=== PATIENT | female | born 1955 | race Hispanic/Latino ===

== ENCOUNTER 2019-09-07 21:24 | Emergency (ER) | payer MEDICAID ==
[2019-09-07 21:33] VITALS: BP 145/57
--- NOTE | 2019-09-07 23:11 | XRay Report ---
LEFT HAND 3 VIEWS INDICATION / CLINICAL INFORMATION: Left middle finger swelling and pain after fall tonight. COMPARISON: None available. FINDINGS: BONES and JOINT(S): There is a mildly displaced oblique fracture through the middle phalanx of the mi ddle finger. No dislocation. No significant arthritis. SOFT TISSUES: Generalized edema is seen along the middle finger. No additional significant abnormalit y. ADDITIONAL FINDINGS: None. IMPRESSION: Acute left middle finger fracture as above. Signer Name: Patel Huerta MD Signed: 09/07/2019 11:06 PM Workstation Name: [id number]
--- NOTE | 2019-09-07 23:19 | Emergency Department Report ---
HPI - General Chief Complaint: Extremity Injury, Upper Time Seen by Provider: 09/07/19 23:05 - HPI HPI: Room 37 The patient is a 64-year-old female presenting with a chief complaint left middle finger pain. The patient states this evening at approximately 19:30 she tripped over a baby gait and her dog falling to the ground injuring her left middle finger. Patient denies loss of consciousness. Patient complains of pain only in the left middle finger and gives her pain score of 9.5/10 ED Past Medical Hx - Past Medical History Previous Medical History?: Yes Hx Hypertension: Yes Hx GERD: Yes Hx Arthritis: Yes Hx Asthma: Yes Additional medical history: Hypercholesterolemia - Surgical History Past Surgical History?: Yes Additional Surgical History: Tubal Ligation - Family History Family history: no significant - Social History Smoking Status: Current Every Day Smoker (2/3 pack per day) Substance Use Type: None - Medications Home Medications: Home Medications Medication Instructions Recorded Confirmed Last Taken Type HYDROcodone/APAP 5-325 [[place] 1 - 2 each PO Q6HR PRN #30 tablet 09/07/19 Unknown Rx 5/325] ED Review of Systems ROS: Stated complaint: LEFT FINGER PAIN Other details as noted in HPI Constitutional: no symptoms reported Eyes: denies: eye pain ENT: denies: throat pain Respiratory: no symptoms reported Cardiovascular: denies: chest pain Endocrine: no symptoms reported Genitourinary: denies: dysuria Musculoskeletal: arthralgia, myalgia Neurological: denies: headache Physical Exam - Physical Exam Vital Signs: Vital Signs 09/07/19 21:31 Temperature 97.5 F L Pulse Rate 63 Respiratory 16 Rate Blood Pressure 145/57 O2 Sat by Pulse 98 Oximetry Physical Exam: GENERAL: The patient is well-developed well-nourished female lying on stretcher not appearing to be in acute distress. [] HEENT: Normocephalic. Atraumatic. Extraocular motions are intact. Patient has moist mucous membranes. NECK: Supple. Trachea midline CHEST/LUNGS: There is no respiratory distress noted. HEART/CARDIOVASCULAR: Regular. There is no tachycardia. 2+ left radial pulse. Normal capillary refill of the left middle finger SKIN: There is swelling and ecchymosis of the left middle finger NEURO: The patient is awake, alert, and oriented. The patient is cooperative. The patient has no focal neurologic deficits. The patient has normal speech MUSCULOSKELETAL: There is swelling, tenderness and ecchymosis of the left middle finger ED Course Vital Signs 09/07/19 21:31 Temperature 97.5 F L Pulse Rate 63 Respiratory 16 Rate Blood Pressure 145/57 O2 Sat by Pulse 98 Oximetry ED Medical Decision Making - Radiology Data Radiology results: report reviewed (left middle finger x-ray), image reviewed (left middle finger x-ray) interpreted by me: Left middle finger [id number] fracture of the middle phalanx of the left middle finger [facility] [address] [place] [address] XRay Report Signed Patient: BRIANA GALVEZ MR#: [id number] 3 : 1955 Acct:[id number] Age/Sex: 64 / F ADM Date: 09/07/19 Loc: ED Attending Dr: Ordering Physician: MARCOS MYERS MD Date of Service: 09/07/19 Procedure(s): XR hand 3+V LT Accession Number(s): [id number] cc: MARCOS MYERS MD Fluoro Time In Minutes: LEFT HAND 3 VIEWS INDICATION / CLINICAL INFORMATION: Left middle finger swelling and pain after fall tonight. COMPARISON: None available. FINDINGS: BONES and JOINT(S): There is a mildly displaced oblique fracture through the middle phalanx of the middle finger. No dislocation. No significant arthritis. SOFT TISSUES: Generalized edema is seen along the middle finger. No additional significant abnormality. ADDITIONAL FINDINGS: None. IMPRESSION: Acute left middle finger fracture as above. Signer Name: Patel Huerta MD Signed: 09/07/2019 11:06 PM Workstation Name: [id number] Transcribed By: [place] Dictated By: Patel Huerta MD Electronically Authenticated By: Patel Huerta MD Signed Date/Time: 09/07/192305 DD/ 03 TD/TT: - Differential Diagnosis finger fracture, finger contusion Critical care attestation.: If time is entered above; I have spent that time in minutes in the direct care of this critically ill patient, excluding procedure time. ED Disposition Clinical Impression: Fracture of phalanx of left middle finger Disposition: DC-01 TO HOME OR SELFCARE Is pt being admited?: No Does the pt Need Aspirin: No Condition: Stable Instructions: Finger Fracture (ED) Prescriptions: HYDROcodone/APAP 5-325 [[place] 5/325] 1 - 2 each PO Q6HR PRN #30 tablet PRN Reason: Pain Referrals: GABRIELE CAMPBELL MD [Staff Physician] - [facility] (Dr. Campbell is an orthopedic surgeon. Please follow-up with him or another orthopedic surgeon for further management of your finger fracture) Time of Disposition: 23:20
[2019-09-07] MEDS ORDERED: HYDROcodone/ACETAMINOPHEN 5-325 MG TAB PO ONE (23:21)
== END 2019-09-07 23:39 | disposition home or self-care (01) ==
LOC: ED 21:24
DX: S62.633A Displaced fracture of distal phalanx of left middle finger, initial encounter for closed fracture (principal); I10 Essential (primary) hypertension; K21.9 Gastro-esophageal reflux disease without esophagitis; M19.90 Unspecified osteoarthritis, unspecified site; J45.909 Unspecified asthma, uncomplicated; F17.200 Nicotine dependence, unspecified, uncomplicated; E78.00 Pure hypercholesterolemia, unspecified; Z98.51 Tubal ligation status; Z79.899 Other long term (current) drug therapy